=== PATIENT | female | born 1940 | race Caucasian/White ===

== ENCOUNTER → 2017-11-08 | Outpatient (CLI) | payer OTHER ==
[~2017-11-08] MED LIST: ARICEPT 5 MG TAB5 MG PO; ASPIRIN EC81 M1; ATORVASTATIN CA40 MG PO; B12INJ IM; CEFUROXIME250 MG PO; LEVOTHROID125 MCG; LISINOPRIL10 MG PO; LORTAB 5 MG/5001 TA1 PO; ONE DAILY WOME1 EAC1; REMERON15 MG PO
== END ==
LOC: ULTRA 13:46
DX: M79.662 Pain in left lower leg (principal); M79.89 Other specified soft tissue disorders

== ENCOUNTER 2020-04-02 22:00 | Emergency (ER) | payer OTHER ==
[~2020-04-02] VITALS: Ht 165.1 cm; Wt 72.6 kg
[2020-04-02 23:22] LABS: ABSOLUTE NEUTROPHILS 5.1 thou/uL (1.4-8.2); BASOPHILS 0.5 % (0.0-2.0); EOSINOPHILS 1.8 % (0.0-3.0); HEMOGLOBIN 15.4 gm/dL (12.0-15.0); LYMPHOCYTES 44.9 % (24.0-44.0); MCH 31.9 pg (26.0-34.0); MCHC 32.1 g/dL (28.0-37.0); MCV 99.5 fL (80.0-100.0); MONOCYTES 6.3 % (1.0-8.0); PLATELET COUNT 104 thou/uL (150-400); POLYS 46.5 % (36.0-66.0); RBC 4.83 mil/uL (4.20-5.00); RDW 15.5 % (10.5-14.5); WBC 10.9 thou/uL (4.0-11.0)
[2020-04-02 23:25] LABS: BE(vivo) -6.2 mmol/L (-2 to +3); HCO3 18.1 mmol/L (22.0-26.0); PCO2 32.4 mmHg (35.0-45.0); PO2 442.4 mmHg (80.0-100.0); pH 7.365 (7.360-7.450); sO2 99.8 % (92.0-98.0)
[2020-04-02 23:31] LABS: ALBUMIN 2.6 g/dL (3.4-5.0); CALCIUM 8.9 mg/dL (8.5-10.1); CREATININE 8.6 mg/dL (0.6-1.0); DIRECT BILIRUBIN 0.2 mg/dL (<0.1-0.2); TOTAL BILIRUBIN 0.6 mg/dL (0.2-1.0)
[2020-04-02 23:32] LABS: POTASSIUM 4.8 mmol/L (3.5-5.1)
[2020-04-03 00:22] LABS: URINE BLOOD 3+ (Negative); URINE CLARITY CLOUDY; URINE COLOR YELLOW; URINE GLUCOSE-RANDOM* NEGATIVE (Negative); URINE KETONES 1+ (Negative); URINE NITRITE-REFLEX NEGATIVE (Negative); URINE PROTEIN (DIPSTICK) 3+ (Negative); URINE SPECIFIC GRAVITY >= 1.030 (1.005-1.035)
[2020-04-03 00:26] LABS: ICTOTEST (BILI CONFIRMATORY) Negative (Negative); URINE BILIRUBIN NEGATIVE (Negative); URINE LEUKOCYTES-REFLEX 3+ (Negative)
[2020-04-03 00:28] LABS: LARGE PLATELETS OCCASIONAL
[2020-04-03 00:40] VITALS: BP 109/58
[2020-04-03 00:51] LABS: CASTS None Seen /LPF (None Seen); MUCUS 0-3 Light strn/LPF (None Seen); URINE WBC-REFLEX >25 Many /HPF (0-5)
[2020-04-03 00:52] LABS: BACTERIA-REFLEX >30 Many /HPF (None Seen); URINE RBC 3-10 Few /HPF (0-2)
[2020-04-03 00:53] LABS: CRYSTALS None Seen /LPF (None Seen); SQUAMOUS 0-3 Few /LPF (0-3)
== END 2020-04-03 00:40 | disposition short-term general hospital (02) ==
LOC: ER 22:00
PROVIDERS: Emergency Medicine
DX: U07.1 COVID-19 (principal); J96.90 Respiratory failure, unspecified, unspecified whether with hypoxia or hypercapnia; N17.9 Acute kidney failure, unspecified; I10 Essential (primary) hypertension; E78.5 Hyperlipidemia, unspecified; Z90.49 Acquired absence of other specified parts of digestive tract; Z90.89 Acquired absence of other organs; Z79.899 Other long term (current) drug therapy